=== PATIENT | female | born 1935 | race Caucasian/White ===

== ENCOUNTER → 2017-02-01 | Day surgery (SDC) | payer OTHER ==
[~2017-02-01] MED LIST: ACETAMINOPHEN 1000 MG/100 ML VIAL IV ONE; BUPIVACAINE/EPINEPHRINE 0.5% PF 30 ML VIAL ONE; CELE200 PO; LACTATED RINGER'S 1000 ML INJ 1,000 ML ONE; LIDOCAINE 1%/EPINEPHrine 1:100,000 SOLN 30 ML VIAL INFIL ONE; MIDAZOLAM HCL 2 MG/2 ML VIAL ONE; MORPHINE SULFATE 4 MG/ML INJ ONE; ONDANSETRON HCL 4 MG/2 ML VIAL IV PUSH ONE; PROPOFOL 200 MG/20 ML AMP IV ONE; SULF1SOL4 OS; ceFAZolin INJ 1,000 MG VIAL ONE; metroNIDAZOLE 500 MG INJ 100 ML IV ONE
--- NOTE | 2017-02-01 14:34 | TN ---
cc: DARYN MAS M.D., JOSEPH D. M.D. DATE OF SURGERY: 02/01/2017 PREOPERATIVE DIAGNOSIS Cholelithiasis, cholecystitis. POSTOPERATIVE DIAGNOSIS Cholelithiasis, cholecystitis. PROCEDURE Laparoscopic cholecystectomy. ANESTHESIA General. SURGEON Dr. Jacinto INDICATION This is a pleasant 82-year-old female in fairly good health, who has symptomatic cholelithiasis and cholecystitis. DETAILS OF PROCEDURE The patient was taken to the operating room and placed in a supine position. After anesthesia her abdomen is prepped with Betadine. We make an incision just below the umbilicus. A saline load test is performed. The abdomen is distended to 15 mmHg. A 10 mm trocar is introduced. Two other working ports are placed, 5 mm below the xiphoid and 5 mm in between the two previously placed ports. It is noted with the injection of the CO2 we did get some into the falciform ligament. We are able to grasp the gallbladder superior laterally, identifying the cystic duct and cystic artery. The gallbladder is noted to be chronically inflamed, fairly enlarged and dilated with numerous large stones. The gallbladder is lifted and retracted superior laterally identifying the cystic duct and cystic artery both of which are doubly ligated and transected. The gallbladder is then placed in an EndoCatch and pulled out through the umbilical incision which must be elongated because of the size of the gallbladder. The trocar is then replaced. The dissection site is examined with excellent hemostasis without biliary leakage. The appendix is visualized as well and looks completely normal. The liver is smooth. The peritoneal surfaces are smooth. No other gross abnormality is seen. The CO2 is removed. The irrigating solution is removed. The trocars are removed. The fascial layer at the umbilicus is closed with 0 Vicryl and skin is closed with 4-0 Vicryl. Steri-Strips are applied, sterile bandage applied. The patient tolerated the procedure well and had no immediate post-op complication. Sergio Jacinto MD [id number]/[email or web address] /2:20 PM /2:28 PM
== END | disposition home or self-care (01) ==
LOC: ESDC 10:50
PROVIDERS: ATTEND Surgery
DX: K80.10 Calculus of gallbladder with chronic cholecystitis without obstruction (principal)
CPT/HCPCS: 00790; 47562; 88304; J0131; J0690; J2250; J2270; J2405; J3010; J7120